=== PATIENT | female | born 1960 | race Caucasian/White ===

== ENCOUNTER 2023-09-05 17:13 | Inpatient (IN) | payer MEDICARE, SELFPAY ==
[2023-09-05 17:15] VITALS: BP 124/72; PULSE 61; RESP 18; TEMP 36.8; O2SAT 96; BMI 27.4
--- NOTE | 2023-09-05 17:22 | XRR_ITS ---
PROCEDURE INFORMATION: Exam: XR Abdomen Exam date and time: 09/05/2023 5:31 PM Age: 62 years old Clinical indication: Abdominal pain; Acute; Prior surgery; Surgery date: 6+ months; Surgery type: Aortic mesh TECHNIQUE: Imaging protocol: Radiologic exam of the abdomen. Views: 2 Views. Upright and supine views. COMPARISON: No relevant prior studies available. FINDINGS: Lungs: Mild chronic appearing interstitial prominence. Heart/Mediastinum: Heart size is within normal limits. A thoracic aortic stent graft is noted. Gastrointestinal tract: Nonspecific bowel-gas pattern without evidence of large or small bowel obstruction. Apparent left lower quadrant ostomy. Moderate retained colonic stool. Intraperitoneal space: Normal. No free air. Bones/joints: No acute osseous abnormalities are seen. XR/XR acute abdomen series [id number] IMPRESSION: No plain film evidence of acute intra-abdominal or pelvic process.
--- NOTE | 2023-09-05 17:42 | ED_ITS ---
Documented by User: Harpreet Rogel DO 09/06/23 05:39 HPI - Abdominal Pain 2 General: Chief Complaint: Abdominal Pain Stated Complaint: abd pain Time Seen by Provider: 09/05/23 17:22 Source: patient Mode of arrival: ambulatory History of Present Illness: 62-year-old female presents emergency ro om with complaints of abdominal pain severe constipation. She states she has not had a normal bowel movement and only treatment nearly 3 weeks she was seen at a hospital in [place]. She has tried multiple laxatives by mouth with no improvement. She has a colostomy. Patient is quadriplegic has a colostomy in the left lower quadrant she has had almost no output in the last couple of weeks. She has been very distended and nauseous. Not had any vomiting. MD elicited complaint: abdominal pain Onset (ago): week(s) Pain Consistency: constant Location: Diffuse Exacerbating factors: nothing Relieving factors: nothing Associated Symptoms: Reports GI cramping; Denies anorexia, belching, bloating, change in bowel habits, change in stool character, chills, coffee ground emesis, constipation, diarrhea, dyspepsia, dysuria, excessive flatus, fever(s), heartburn, hematochezia, hematuria, hematemesis, fecal incontinence, loose stools, melena, nausea, poor appetite, syncope and vomiting Review of Systems 2 Const: Denies: fever(s) or chills Card: Denies: chest pain or syncope Resp: Denies: dyspnea GI: Reports: GI cramping; Denies: abdominal pain, nausea, vomiting, hematemesis, coffee ground emesis, heartburn, diarrhea, constipation, bloating, belching, excessive flatus, fecal incontinence, change in bowel habits, change in stool character, hematochezia or melena : Denies: dysuria, urinary frequency, urinary urgency or hematuria Musc: Denies: neck pain or back pain Skin/Breast: Denies: rash PFSH ED 2 PFSH: Medical History Colostomy in place Quadriplegia Surgical History History of colostomy Social History Smoking and tobacco/nicotine status: never used tobacco/nicotine Alcohol intake: never Substance/Drug Use: never Physical Exam 2 Const: GENERAL APPEARANCE: cooperative and comfortable O RIENTATION/CONSCIOUSNESS: Yes awake, Yes oriented to person, Yes oriented to place and Yes oriented to time HENMT: COMMON NORMALS: normocephalic, atraumatic and hearing grossly normal bilaterally HEAD & SCALP: normocephalic and atraumatic Resp: COMMON NORMALS: normal respiratory effort, No retractions, No use of accessory muscles and clear to auscultation bilaterally AUSCULTATION: clear to auscultation bilaterally Cardio: COMMON NORMALS: regular rate, regular rhythm and No murmurs present (Cardio) RATE: regular rate RHYTHM: regular rhythm GI: COMMON NORMALS: Soft to palpation and No hepatosplenomegaly present I NSPECTION: Yes abdominal distension AUSCULTATION: Yes normoactive bowel sounds PALPATION: Yes Soft to palpation, No Tenderness to palpation present (GI), No Guarding due to palpation present (GI) and Yes No hepatosplenomegaly present : COMMON NORMALS: Yes no CVA tenderness BLADDER/KIDNEY EXAM: Yes no CVA tenderness Back/Pelvis: COMMON NORMALS: no CVA tenderness Extremity: COMMON NORMALS: normal to inspection, capillary refill normal, no clubbing, cyanosis or edema, no calf tenderness and no pedal edema Neuro: SENSORIUM/ORIENTATION: Yes oriented to person, Yes oriented to place and Yes oriented to time Skin: COMMON NORMALS: no rashes or lesions noted GENERAL SKIN EXAM: no rashes or lesions noted Course 2 Vital Signs: Vital signs: Vital Signs Temperature 98.0 F 09/06/23 03:37 Pulse Rate 63 09/06/23 05:11 Respiratory Rate 18 09/06/23 03:37 Blood Pressure 92/54 09/06/23 03:41 Pulse Oximetry 93 09/06/23 03:37 Oxygen Delivery Me thod Nasal Cannula 09/06/23 03:37 Oxygen Flow Rate 2 09/06/23 03:37 MDM - Abdominal Pain Medical Decision Making Care signed out to Dr. Bertrand at change of shift. See final notes for diagnosis and disposition. Lab work reviewed x-ray and abdomen pelvis CT reviewed, patient was given 4 mg morphine and 4 mg Zofran for pain and nausea as well as 1 bottle of mag citrate, 10 mg Duca locks and 12 mg of Relistor for constipation. These did not produce any results. Patient has had to be admitted with bowel irrigation in the past. Dr. Arana was consulted who agreed to place the patient in the hospital and Dr. Guerra general surgery was consulted who agreed to come take a look at the patient. Lab Data 09/05/23 18:10 09/05/23 18:10 Labs/Radiology: Radiology Impressions Chest/Abdomen X-ray 09/05/23 17:22 IMPRESSION: No plain film evidence of acute intra-abdominal or pelvic process. Abdomen/Pelvis CT 09/05/23 17:51 IMPRESSION: 1. No acute intra-abdominal or pelvic process. 2. Indeterminate 5.3 cm segment 8 low-density liver lesion, likely representing a cyst, though indeterminate on this CT scan. Recommend initial evaluation with ultrasound. Multiphase CT or MR should be obtained if lesion remains indeterminate. 3. Other nonemergent findings above. Laboratory Results WBC 7.68 10^3/uL (3.29-11.43) 09/05/23 18:10 RBC 4.01 10^6/uL (3.85-5.65) 09/05/23 18:10 Hgb 11.90 g/dL (11.27-16.99) 09/05/23 18:10 Hct 36.6 % (36-47) 09/05/23 18:10 MCV 91.3 fl (85-98) 09/05/23 18:10 MCH 29.7 pg (27-33) 09/05/23 18:10 MCHC 32.5 g/dL (30-55) 09/05/23 18:10 RDW 14.4 % (12.1-15.1) 09/05/23 18:10 Plt Count 336 10^3/cmm (157-399) 09/05/23 18:10 MPV 9.9 fL (7.4-10.4) 09/05/23 18:10 Neut % (Auto) 49.6 % 09/05/23 18:10 Lymph % (Auto) 40.2 % 09/05/23 18:10 [place] % (Auto) 7.8 % 09/05/23 18:10 Eos % (Auto) 1.6 % 09/05/23 18:10 Baso % (Auto) 0.5 % 09/05/23 18:10 Neut # (Auto) 3.81 10^3/uL (1.8-7.7) 09/05/23 18:10 Lymph # (Auto) 3.1 10^3/uL (0.8-4.8) 09/05/23 18:10 [place] # (Auto) 0.6 10^3/uL (0.2-0.9) 09/05/23 18:10 Eos # (Auto) 0.1 10^3/uL (0.0-0.8) 09/05/23 18:10 Baso # (Auto) 0.0 10^3/uL (0.0-0.1) 09/05/23 18:10 Nucleated RBC % (auto) 0 % 09/05/23 18:10 Nucleated RBCs # 0.0 /100WBC 09/05/23 18:10 Sodium 142 mmol/L (136-145) 09/05/23 18:10 Potassium 4.2 mmol/L (3.5-5.1) 09/05/23 18:10 Chloride 107 mmol/L (98-107) 09/05/23 18:10 Carbon Dioxide 25 mmol/L (22-29) 09/05/23 18:10 Anion Gap 14.2 (5-19) 09/05/23 18:10 BUN 15 mg/dL (8-23) 09/05/23 18:10 Creatinine 0.4 mg/dL (0.5-0.9) L 09/05/23 18:10 GFR Calculation 162.3 mL/min (90-130) H 09/05/23 18:10 Glucose 94 mg/dL (65-115) 09/05/23 18:10 Calculated Osmolality 295 mOsm/kg (285-295) 09/05/23 18:10 Lactic Acid 1.4 mmol/L (0.5-2.2) 09/05/23 18:10 Calcium 9.4 mg/dL (8.5-10.5) 09/05/23 18:10 Total Bilirubin 0.2 mg/dL (0.15-1.2) 09/05/23 18:10 AST 14 U/L (0-32) 09/05/23 18:10 ALT 12 U/L (0-33) 09/05/23 18:10 Alkaline Phosphatase 179 U/L (35-105) H 09/05/23 18:10 Total Protein 7.2 g/dL (6.6-8.7) 09/05/23 18:10 Albumin 3.9 g/dL (3.5-5.2) 09/05/23 18:10 Globulin 3.3 g/dL (1.3-4.6) 09/05/23 18:10 TSH 5.14 uIU/mL (0.27-4.20) H 09/05/23 18:10 Urine Color Yellow (Yellow) 09/05/23 19:57 Urine Appearance Hazy (CLEAR) A 09/05/23 19:57 Urine pH 8 (5-7) H 09/05/23 19:57 Ur Specific [place] 1.005 (1.005-1.030) 09/05/23 19:57 Urine Protein Neg (Negative) 09/05/23 19:57 Urine Glucose (UA) Norm (Normal) 09/05/23 19:57 Urine Ketones Negative (Negative) 09/05/23 19:57 Urine Blood Neg (Negative) 09/05/23 19:57 Urine Nitrate Positive (Negative) H 09/05/23 19:57 Urine Bilirubin Neg (Negative) 09/05/23 19:57 Prot Sulfosalicylic Acd Negative (Negative) 09/05/23 19:57 Urine Urobilinogen Neg mg/dL (Negative) 09/05/23 19:57 Ur Leukocyte Esterase 2+ (Negative) H 09/05/23 19:57 Urine RBC 0-4 /hpf (0-2) H 09/05/23 19:57 Urine WBC 25-40 /hpf (0-5) H 09/05/23 19:57 Ur Squamous Epith Cells 5-10 /hpf (0-5) H 09/05/23 19:57 Amorphous Sediment 1+ /hpf 09/05/23 19:57 Urine Bacteria 2+ /hpf (NONE) H 09/05/23 19:57 Coarse Granular Casts 0-4 /lpf H 09/05/23 19:57 Urine Mucus 2+ /hpf 09/05/23 19:57 Discharge Plan Discharge Patient Disposition: Admitted As Inpatient Admit Provider: Gregorio Paiz Clinical Impression: Constipation Qualifiers: Constipation type: unspecified constipation type Qualified Code(s): K59.00 - Constipation, unspecified Condition: Stable Coding Level of Care Code ED Blanker Operator for Chg Fwd Documented by User: Tr Bertrand DO 09/06/23 01:48 HPI - Abdominal Pain 2 General: Chief Complaint: Abdominal Pain Stated Complaint: abd pain Time Seen by Provider: 09/05/23 17:22 [facility] ED 2 PFSH: Medical History Colostomy in place Quadriplegia Surgical History History of colostomy Social History Smoking and tobacco/nicotine status: never used tobacco/nicotine Alcohol intake: never Substance/Drug Use: never Course 2 Vital Signs: Vital signs: Vital Signs Temperature 98.0 F 09/06/23 03:37 Pulse Rate 63 09/06/23 05:11 Respiratory Rate 18 09/06/23 03:37 Blood Pressure 92/54 09/06/23 03:41 Pulse Oximetry 93 09/06/23 03:37 Oxygen Delivery Me thod Nasal Cannula 09/06/23 03:37 Oxygen Flow Rate 2 09/06/23 03:37 MDM - Abdominal Pain Medical Decision Making Care signed out to Dr. Bertrand at change of shift. See final notes for diagnosis and disposition. Lab work reviewed x-ray and abdomen pelvis CT reviewed, patient was given 4 mg morphine and 4 mg Zofran for pain and nausea as well as 1 bottle of mag citrate, 10 mg Duca locks and 12 mg of Relistor for constipation. These did not produce any results. Patient has had to be admitted with bowel irrigation in the past. Dr. Arana was consulted who agreed to place the patient in the hospital and Dr. Guerra general surgery was consulted who agreed to come take a look at the patient. Lab Data 09/05/23 18:10 09/05/23 18:10 Labs/Radiology: Radiology Impressions Chest/Abdomen X-ray 09/05/23 17:22 IMPRESSION: No plain film evidence of acute intra-abdominal or pelvic process. Abdomen/Pelvis CT 09/05/23 17:51 IMPRESSION: 1. No acute intra-abdominal or pelvic process. 2. Indeterminate 5.3 cm segment 8 low-density liver lesion, likely representing a cyst, though indeterminate on this CT scan. Recommend initial evaluation with ultrasound. Multiphase CT or MR should be obtained if lesion remains indeterminate. 3. Other nonemergent findings above. Laboratory Results WBC 7.68 10^3/uL (3.29-11.43) 09/05/23 18:10 RBC 4.01 10^6/uL (3.85-5.65) 09/05/23 18:10 Hgb 11.90 g/dL (11.27-16.99) 09/05/23 18:10 Hct 36.6 % (36-47) 09/05/23 18:10 MCV 91.3 fl (85-98) 09/05/23 18:10 MCH 29.7 pg (27-33) 09/05/23 18:10 MCHC 32.5 g/dL (30-55) 09/05/23 18:10 RDW 14.4 % (12.1-15.1) 09/05/23 18:10 Plt Count 336 10^3/cmm (157-399) 09/05/23 18:10 MPV 9.9 fL (7.4-10.4) 09/05/23 18:10 Neut % (Auto) 49.6 % 09/05/23 18:10 Lymph % (Auto) 40.2 % 09/05/23 18:10 [place] % (Auto) 7.8 % 09/05/23 18:10 Eos % (Auto) 1.6 % 09/05/23 18:10 Baso % (Auto) 0.5 % 09/05/23 18:10 Neut # (Auto) 3.81 10^3/uL (1.8-7.7) 09/05/23 18:10 Lymph # (Auto) 3.1 10^3/uL (0.8-4.8) 09/05/23 18:10 [place] # (Auto) 0.6 10^3/uL (0.2-0.9) 09/05/23 18:10 Eos # (Auto) 0.1 10^3/uL (0.0-0.8) 09/05/23 18:10 Baso # (Auto) 0.0 10^3/uL (0.0-0.1) 09/05/23 18:10 Nucleated RBC % (auto) 0 % 09/05/23 18:10 Nucleated RBCs # 0.0 /100WBC 09/05/23 18:10 Sodium 142 mmol/L (136-145) 09/05/23 18:10 Potassium 4.2 mmol/L (3.5-5.1) 09/05/23 18:10 Chloride 107 mmol/L (98-107) 09/05/23 18:10 Carbon Dioxide 25 mmol/L (22-29) 09/05/23 18:10 Anion Gap 14.2 (5-19) 09/05/23 18:10 BUN 15 mg/dL (8-23) 09/05/23 18:10 Creatinine 0.4 mg/dL (0.5-0.9) L 09/05/23 18:10 GFR Calculation 162.3 mL/min (90-130) H 09/05/23 18:10 Glucose 94 mg/dL (65-115) 09/05/23 18:10 Calculated Osmolality 295 mOsm/kg (285-295) 09/05/23 18:10 Lactic Acid 1.4 mmol/L (0.5-2.2) 09/05/23 18:10 Calcium 9.4 mg/dL (8.5-10.5) 09/05/23 18:10 Total Bilirubin 0.2 mg/dL (0.15-1.2) 09/05/23 18:10 AST 14 U/L (0-32) 09/05/23 18:10 ALT 12 U/L (0-33) 09/05/23 18:10 Alkaline Phosphatase 179 U/L (35-105) H 09/05/23 18:10 Total Protein 7.2 g/dL (6.6-8.7) 09/05/23 18:10 Albumin 3.9 g/dL (3.5-5.2) 09/05/23 18:10 Globulin 3.3 g/dL (1.3-4.6) 09/05/23 18:10 TSH 5.14 uIU/mL (0.27-4.20) H 09/05/23 18:10 Urine Color Yellow (Yellow) 09/05/23 19:57 Urine Appearance Hazy (CLEAR) A 09/05/23 19:57 Urine pH 8 (5-7) H 09/05/23 19:57 Ur Specific [place] 1.005 (1.005-1.030) 09/05/23 19:57 Urine Protein Neg (Negative) 09/05/23 19:57 Urine Glucose (UA) Norm (Normal) 09/05/23 19:57 Urine Ketones Negative (Negative) 09/05/23 19:57 Urine Blood Neg (Negative) 09/05/23 19:57 Urine Nitrate Positive (Negative) H 09/05/23 19:57 Urine Bilirubin Neg (Negative) 09/05/23 19:57 Prot Sulfosalicylic Acd Negative (Negative) 09/05/23 19:57 Urine Urobilinogen Neg mg/dL (Negative) 09/05/23 19:57 Ur Leukocyte Esterase 2+ (Negative) H 09/05/23 19:57 Urine RBC 0-4 /hpf (0-2) H 09/05/23 19:57 Urine WBC 25-40 /hpf (0-5) H 09/05/23 19:57 Ur Squamous Epith Cells 5-10 /hpf (0-5) H 09/05/23 19:57 Amorphous Sediment 1+ /hpf 09/05/23 19:57 Urine Bacteria 2+ /hpf (NONE) H 09/05/23 19:57 Coarse Granular Casts 0-4 /lpf H 09/05/23 19:57 Urine Mucus 2+ /hpf 09/05/23 19:57 All radiology interpretation(s) finalized by discharge Discharge Plan Discharge Patient Disposition: Admitted As Inpatient Admit Provider: Gregorio Paiz Clinical Impression: Constipation Qualifiers: Constipation type: unspecified constipation type Qualified Code(s): K59.00 - Constipation, unspecified Condition: Stable Coding Level of Care Code ED Blanker Operator for Seng Reynolds
--- NOTE | 2023-09-05 17:51 | CTR_ITS ---
PROCEDURE INFORMATION: Exam: CT Abdomen And Pelvis Without Contrast Exam date and time: 09/05/2023 6:31 PM Age: 62 years old Clinical indication: Abdominal pain; Generalized; Prior surgery; Surgery date: 6+ months; Surgery type: Gb. Colostomy. Csection. Suprapubic cath. Bilat hips. Patient HX: Diffuse abd pain with constipation TECHNIQUE: Imaging protocol: Computed tomography of the abdomen and pelvis without contrast. Radiation optimization: All CT scans at this facility use at least one of these dose optimization techniques: automated exposure control; mA and/or kV adjustment per patient size (includes targeted exams where dose is matched to clinical indication); or iterative reconstruction. COMPARISON: CR (ABDOMEN, ) 09/05/2023 5:31 PM RADIATION DOSE METRICS: Total DLP (mGy-cm): 755.67 FINDINGS: Tubes, catheters and devices: Suprapubic catheter in decompressed urinary bladder. Lungs: Mild [id number]-right basilar atelectasis and/or scarring. Heart: Heart size is within normal limits. There is no pericardial effusion or pericardial thickening. Liver: Indeterminate 5.3 cm segment 8 low-density liver lesion, likely representing a cyst, though indeterminate on this CT scan. The liver is otherwise normal Gallbladder and bile ducts: The gallbladder is surgically absent. There is no ductal dilatation. Pancreas: The pancreas is normal. Spleen: The spleen is normal. Adrenal glands: The adrenal glands are normal. Kidneys and ureters: No renal calcifications are identified. There is no hydronephrosis. Stomach and bowel: [id number] retained colonic stool. Left lower quadrant colostomy. There is no large or small bowel obstruction. There is no evidence of bowel wall thickening. Appendix: A normal appendix is identified. Intraperitoneal space: No inflammatory changes are identified. There is no free fluid or fluid collection seen. There is no pneumoperitoneum. Vasculature: Atherosclerotic calcifications are present. No aneurysm is identified. Lymph nodes: Unremarkable. No enlarged lymph nodes. Urinary bladder: The urinary bladder is decompressed. A suprapubic catheter is present. Reproductive: The uterus is present. Bones/joints: Moderate atrophy of the paraspinal musculature and marked atrophy of the proximal lower extremity and gluteal musculature. Soft tissues: Postoperative changes of the bilateral proximal femurs. Moderate osseous demineralization. Chronic appearing L5 vertebral body compression fracture. No definitive acute fracture seen. CT/CT abdomen pelvis wo con [id number] IMPRESSION: 1. No acute intra-abdominal or pelvic process. 2. Indeterminate 5.3 cm segment 8 low-density liver lesion, likely representing a cyst, though indeterminate on this CT scan. Recommend initial evaluation with ultrasound. Multiphase CT or MR should be obtained if lesion remains indeterminate. 3. Other nonemergent findings above.
[2023-09-05 18:16] LABS: Basophils % 0.5 %; Eosinophils # 0.1 10^3/uL (0.0-0.8); Eosinophils % 1.6 %; Hematocrit 36.6 % (36-47); Lymphocytes # 3.1 10^3/uL (0.8-4.8); Lymphocytes % 40.2 %; Mean Corpuscular HGB Conc 32.5 g/dL (30-55); Mean Corpuscular Hemoglobin 29.7 pg (27-33); Mean Corpuscular Volume 91.3 fl (85-98); Mean Platelet Volume 9.9 fL (7.4-10.4); Monocytes # 0.6 10^3/uL (0.2-0.9); Monocytes % 7.8 %; Neutrophils # 3.81 10^3/uL (1.8-7.7); Neutrophils % 49.6 %; Nucleated Red Blood Cells % 0 %; Platelet Count 336 10^3/cmm (157-399); Red Blood Count 4.01 10^6/uL (3.85-5.65); Red Cell Distribution Width 14.4 % (12.1-15.1); White Blood Count 7.68 10^3/uL (3.29-11.43)
[2023-09-05 18:32] LABS: Alanine Aminotransferase 12 U/L (0-33); Albumin Level 3.9 g/dL (3.5-5.2); Alkaline Phosphatase 179 U/L (35-105); Anion Gap 14.2 (5-19); Aspartate Amino Transferase 14 U/L (0-32); Blood Urea Nitrogen 15 mg/dL (8-23); Calcium 9.4 mg/dL (8.5-10.5); Carbon Dioxide 25 mmol/L (22-29); Chloride 107 mmol/L (98-107); Creatinine Clr Calc Pharmacy 144.2093; Globulin 3.3 g/dL (1.3-4.6); Glomerular Filtration Rate 162.3 mL/min (90-130); Glucose 94 mg/dL (65-115); Osmolality Calculated 295 mOsm/kg (285-295); Potassium 4.2 mmol/L (3.5-5.1); Sodium 142 mmol/L (136-145); Total Bilirubin 0.2 mg/dL (0.15-1.2); Total Protein 7.2 g/dL (6.6-8.7)
[2023-09-05 18:33] LABS: Lactic Sepsis W/Reflex 1.4 mmol/L (0.5-2.2)
[2023-09-05 20:24] LABS: Protein Urine Neg (Negative); Specific Gravity, Urine 1.005 (1.005-1.030); Urine Appearance Hazy (CLEAR); Urine Color Yellow (Yellow); pH Urine 8 (5-7)
[2023-09-05] MEDS: bisacodyl 5 mg Tablet 10 MG PO (20:24)
[2023-09-05] MEDS: magnesium citrate Btl 296 mL PO (20:24)
[2023-09-05 20:25] LABS: Add Urine Culture? Yes; Add Urine Microscopic? YES; Amorphous Sediment Urine 1+ /hpf; Bacteria Urine 2+ /hpf; Bilirubin Urine Neg (Negative); Blood Urine Neg (Negative); Coarse Granular Casts Urine 0-4 /lpf; Glucose Urine UA Norm (Normal); Ketones Urine Negative (Negative); Leukocyte Esterase Urine 2+ (Negative); Mucus Urine 2+ /hpf; Nitrate Urine Positive (Negative); RBC Urine 0-4 /hpf (0-2); Sulfosalicylic Acid Urine Negative (Negative); Urobilinogen Urine Neg (Negative); WBC Urine 25-40 /hpf (0-5)
[2023-09-05 20:26] VITALS: BP 90/65; PULSE 75; RESP 16; O2SAT 97
[2023-09-05] MEDS: ondansetron 2 mg/ML SDV 2 mL 4 MG IVP (20:45)
[2023-09-05 20:46] VITALS: RESP 16; O2SAT 95
[2023-09-05] MEDS: morphine 4 mg/mL SDV 1 mL IVP (20:46)
[2023-09-05] MEDS: methylnaltrexone 12 /0.6 mL INJ 12 MG SUBCUT (21:06)
[2023-09-05] MEDS: ondansetron 2 mg/ML SDV 2 mL 8 MG IVP (21:46)
[2023-09-05 21:50] VITALS: BP 96/71; PULSE 70; RESP 16; O2SAT 91
[2023-09-05 23:02] VITALS: BP 94/56; PULSE 65; O2SAT 94
--- NOTE | 2023-09-05 23:04 | P.HP_ITS ---
Providers/Chief Complaint 2 Admitting Physician: Gregorio Paiz MD Chief Complaint: abd pain History of Present Illness Mily Collins is a 62 year old female with a past medical history of quadriplegia, history of colostomy, with colostomy revision, who presents to [facility] due to abdominal distention, abdominal pain, lack of stooling for the last 2 weeks. Patient tells me that due to her quadriplegia, she has altered bowel function, she has had issues with constipation in the past, requiring inpatient admission, she has had different enema treatments, she has required colonoscopies in the past. She tells me that for the last month she is only had 2 bowel movements and she has not had a bowel movement in over 2 weeks, she continues to have abdominal distention, abdominal pain, no output from her colostomy, she feels nauseous, Review of Systems 2 Const: Denies: fever(s) Card: Denies: chest pain Resp: Denies: dyspnea GI: Reports: abdominal pain and nausea Medications/Allergies Allergies Allergy/AdvReac Type Severity Reaction Status Date / Time amitriptyline Allergy Unknown Unknown Verified 09/05/23 17:26 aspirin Allergy Unknown Unknown Verified 09/05/23 17:26 Sulfa (Sulfonamide Allergy Unknown Unknown Verified 09/05/23 17:26 Antibiotics) adhesive tape Allergy ALGY-Rash Verified 09/05/23 17:26 PFSH Acute 2 PFSH: Medical History (Updated 09/05/23 @ 23:10 by Galen Holley MD) Colostomy in place Quadriplegia Surgical History (Updated 09/05/23 @ 23:07 by Galen Holley MD) History of colostomy Social History (Updated 09/05/23 @ 23:07 by Galen Holley MD) Smoking and tobacco/nicotine status: never used tobacco/nicotine Alcohol intake: never Substance/Drug Use: never Vitals/I&O/Wt Last Vital Signs Temp 98.3 F 09/05/23 17:15 Pulse 65 09/05/23 23:02 Resp 16 09/05/23 21:50 BP 94/56 09/05/23 23:02 Pulse Ox 94 09/05/23 23:02 O2 Del Method Nasal Cannula 09/05/23 23:02 O2 Flow Rate 2 09/05/23 23:02 Weight last 48 hrs Weight 72.575 kg Physical Exam 2 Const: COMMON NORMALS: no acute distress and patient oriented x3 HENMT: COMMON NORMALS: normocephalic HEAD & SCALP: normocephalic Eye: COMMON NORMALS: Equal, round and reactive pupils present Neck/C-Spine: COMMON NORMALS: no JVD Resp: COMMON NORMALS: normal respiratory effort, No retractions, No use of accessory muscles and clear to auscultation bilaterally AUSCULTATION: clear to auscultation bilaterally Cardio: COMMON NORMALS: regular rate, regular rhythm, S1 normal heart sound present and S2 normal heart sound present RATE: regular rate RHYTHM: r egular rhythm HEART SOUNDS: S1 normal heart sound present and S2 normal heart sound present GI: OTHER: Abdomen soft, distended, scattered bowel sounds, no guarding, no rebound, no rigidity, has a left lower quadrant colostomy Extremity: COMMON NORMALS: no pedal edema Neuro: COMMON NORMALS: patient oriented x3 Psych: COMMON NORMALS: mental status grossly normal Data 09/05/23 18:10 09/05/23 18:10 A&P Assessment and plan (1) Constipation by outlet dysfunction: (2) UTI (urinary tract infection): Plan Severe constipation -General surgery consulted by ER -Continue MiraLAX 17 g twice daily -Continue lactulose 20 g twice daily -Check TSH -Serial abdominal exams -Full code -Lovenox for DVT prophylaxis UTI, Rocephin Currently patient does not know medication she takes, family will go home and bring or call us with all her medications Attestations 2 Medical Necessity Statement*: Patient requires hospitalization, inpatient, greater than 2 minutes due to UTI, severe constipation Diagnoses Constipation by outlet dysfunction K59.02 UTI (urinary tract infection) N39.0
--- NOTE | 2023-09-05 23:16 | P.CONIM_ITS ---
Providers/Reason For Consult 2 Consulting Physician/Specialty*: Emergency Department Reason for Consult*: Abdominal pain and Distension Requesting Physician: Dr. Bertrand Attending Physician: Gregorio Paiz MD History of Present Illness History of Present Illness Mily Collins is a 62 year old female with quadriplegia and history of colostomy and colostomy revision for prolapse who presents to ED with 2-3 weeks constipation with increasing abdominal pain, distension, and nausea. She reports history of admission to [facility] 4 weeks ago with the same symptoms where she reports treatment with enemas and pro-motility medications. She reports two or three different pain medications including short and long acting opiates, but says that she rarely takes them unless she's in significant pain as she is now. Her chronic constipation seems to have worsened over the last 6 months, roughly coinciding with a flap coverage procedure for a wound. Review of Systems 2 Const: Reports: change in weight (Increased weight due to retained stool) Eyes: Denies: change in vision ENMT: Reports: dry mouth; Denies: odynophagia Card: Denies: chest pain Resp: Reports: pain on inspiration (deep inspiration increases abdominal pain) GI: Reports: abdominal pain, nausea, constipation (Severe) and bloating; Denies: vomiting or dysphagia : Reports: other (No change in SPT output noted) Musc: Reports: other (Baseline partial quadriplegia) Neuro: Denies: sensory changes or lack of coordination Miguel A/Lymph: Denies: easy bruising or easy bleeding Medications/Allergies Allergies Allergy/AdvReac Type Severity Reaction Status Date / Time amitriptyline Allergy Unknown Unknown Verified 09/05/23 17:26 aspirin Allergy Unknown Unknown Verified 09/05/23 17:26 Sulfa (Sulfonamide Allergy Unknown Unknown Verified 09/05/23 17:26 Antibiotics) adhesive tape Allergy ALGY-Rash Verified 09/05/23 17:26 Patient unsure of home medications, family to bring to hospital for confirmation. PFSH Acute 2 PFSH: Medical History Colostomy in place Quadriplegia Surgical History History of colostomy Social History Smoking and tobacco/nicotine status: never used tobacco/nicotine Alcohol intake: never Substance/Drug Use: never Vitals/I&O/Wt Last Vital Signs Temp 98.3 F 09/05/23 17:15 Pulse 65 09/05/23 23:02 Resp 16 09/05/23 21:50 BP 94/56 09/05/23 23:02 Pulse Ox 94 09/05/23 23:02 O2 Del Method Nasal Cannula 09/05/23 23:02 O2 Flow Rate 2 09/05/23 23:02 Weight last 48 hrs Weight 160 lb Physical Exam 2 Const: COMMON NORMALS: no acute distress, patient oriented x3, alert and well nourished EXAM LIMITATIONS: no altered mental status and no behavioral limitations GENERAL APPEARANCE: cooperative, comfortable, well kempt and well developed HENMT: COMMON NORMALS: normocephalic, atraumatic, hearing grossly normal bilaterally, Normal external nose present and dentition normal HEAD & SCALP: normocephalic and atraumatic NOSE: Normal external nose present Eye: COMMON NORMALS: no scleral icterus GENERAL EYE: appearance normal, both eyes and all related structures ALIGNMENT: Yes alignment normal E YELID: eyelids normal Neck/C-Spine: COMMON NORMALS: full ROM and supple GENERAL: Yes normal visual inspection Resp: COMMON NORMALS: normal respiratory effort, No retractions and No use of accessory muscles EFFORT & INSPECTION: Yes able to speak in complete sentences, Yes symmetric chest movement and No respiratory distress Cardio: COMMON NORMALS: regular rate and regular rhythm RATE: regular rate RHYTHM: regular rhythm PERIPHERAL PULSES: radial pulses present GI: COMMON NORMALS: Soft to palpation INSPECTION: No Abdominal wall edema, Yes abdominal distension, No caput medusae present, No Fluid wave present and Yes GI ostomy present (LLQ Colostomy digitized easily without obstruction, firm stool noted) AUSCULTATION: Yes Hypoactive bowel sounds present PALPATION: Yes Soft to palpation, Yes Tenderness to palpation present (GI) (mild diffuse), No Guarding due to palpation present (GI), No Rigid due to palpation, No Hernia present and No Rebound tenderness present PERCUSSION: no fluid wave RECTAL EXAM: deferred : EXTERNAL FEMALE EXAM: No Hernia present OTHER: SPT present with CYU Extremity: NARRATIVE EXTREMITY EXAM: Partial mobility of arms and hands sufficient to manipulate touchscreen phone despite contractures. No motor control of atrophic lower extremities. Neuro: COMMON NORMALS: patient oriented x3 SENSORIUM/ORIENTATION: Yes alert SPEECH: speech normal MOTOR EXAM: Other motor observations present (Partial mobility of arms and hands, no mobility of lower extremities) Psych: COMMON NORMALS: mental status grossly normal, Normal thought process present, cooperative, normal affect and speech normal APPEARANCE: Yes well kempt ATTITUDE: Yes calm ACTIVITY/MOTOR BEHAVIOR: Yes appropriate eye contact SPEECH: Yes normal speech MOOD & AFFECT: Yes euthymic mood T HOUGHT PROCESS: Normal thought process present THOUGHT CONTENT: Yes Normal thought content present ATTENTION/CONCENTRATION: Yes attention grossly intact INSIGHT: Fair insight present (Psych) JUDGEMENT: Fair judgement present (Psych) Urinary Catheter Management: Suprapubic: Cath Placed During This Visit: no Reason for Continuing Indwelling Catheter: Chronic Indwelling Urinary Catheter on Admission Sepsis: Is patient septic: No Data 09/05/23 18:10 09/05/23 18:10 CT Abd/Pel: I personally reviewed and interpreted this imaging study as follows: My impression: Moderate to severe constipation without evidence of structural obstruction, hernia, volvulus, or stricture. Prior cholecystectomy. No evidence of inflammation within the abdomen. A&P Assessment and plan (1) Constipation: Severe constipation bordering on functional obstruction, likely opiate induced. Agree with admission to and laxative regimen prescribed by medical service. No indication for surgical intervention at this time. Discussed Jackson placement for enema with patient; she declines at this time citing futility of similar efforts at [facility] roughly one month ago. Should this be desired and patient agreeable, please contact me for placement. Qualifiers: Constipation type: unspecified constipation type Qualified Code(s): K 59.00 - Constipation, unspecified Coding Level of Care Code Acute Code for Chg Fwd Diagnoses Constipation K59.00 Constipation type: unspecified constipation type
[2023-09-06] VITALS (15 sets, daily range): BP systolic 71–125; BP diastolic 36–82; PULSE 54–80; RESP 16–18; TEMP 36.4–36.7; O2SAT 93–99; BMI 30.2
[2023-09-06 00:18] LABS: Thyroid Stimulating Hormone 5.14 uIU/mL (0.27-4.20)
[2023-09-06] MEDS: polyethylene glycol 3350 Pkt 17 gm PO ×3 (00:25→18:01)
[2023-09-06] MEDS: pantoprazole 40 mg SDV IVP (00:25)
[2023-09-06] MEDS: enoxaparin 40 mg/0.4 mL Syringe SUBCUT (00:25)
[2023-09-06] MEDS: lactulose oral liq 20 gm/30 mL UDC PO ×2 (00:25→10:56)
[2023-09-06] MEDS: cefTRIAXone 1,000 MG in sodium chloride 0.9% (plus) 50 ML 100 MG IV (00:26)
[2023-09-06] MEDS: sodium chloride 0.9% 1,000 ML 75 ML IV ×2 (00:26→13:57)
[2023-09-06] MEDS: morphine 4 mg/mL SDV 1 mL 2 MG IVP (00:42)
[2023-09-06] MEDS: pregabalin 150 mg Capsule PO ×3 (03:30→20:38)
[2023-09-06] MEDS: trazodone 50 mg Tablet PO ×2 (04:02→18:00)
[2023-09-06 06:04] LABS: Basophils % 0.5 %; Eosinophils # 0.1 10^3/uL (0.0-0.8); Eosinophils % 1.3 %; Hematocrit 33.6 % (36-47); Lymphocytes # 2.6 10^3/uL (0.8-4.8); Lymphocytes % 40.2 %; Mean Corpuscular HGB Conc 32.1 g/dL (30-55); Mean Corpuscular Hemoglobin 29.5 pg (27-33); Mean Corpuscular Volume 91.8 fl (85-98); Mean Platelet Volume 9.7 fL (7.4-10.4); Monocytes # 0.5 10^3/uL (0.2-0.9); Monocytes % 8.2 %; Neutrophils # 3.16 10^3/uL (1.8-7.7); Neutrophils % 49.6 %; Nucleated Red Blood Cells % 0 %; Platelet Count 292 10^3/cmm (157-399); Red Blood Count 3.66 10^6/uL (3.85-5.65); Red Cell Distribution Width 14.4 % (12.1-15.1); White Blood Count 6.35 10^3/uL (3.29-11.43)
[2023-09-06 06:18] LABS: Alanine Aminotransferase 12 U/L (0-33); Albumin Level 3.5 g/dL (3.5-5.2); Alkaline Phosphatase 166 U/L (35-105); Anion Gap 13.5 (5-19); Aspartate Amino Transferase 16 U/L (0-32); Blood Urea Nitrogen 15 mg/dL (8-23); Calcium 8.6 mg/dL (8.5-10.5); Carbon Dioxide 27 mmol/L (22-29); Chloride 105 mmol/L (98-107); Creatinine Clr Calc Pharmacy 151.1043; Globulin 2.9 g/dL (1.3-4.6); Glomerular Filtration Rate 162.3 mL/min (90-130); Glucose 89 mg/dL (65-115); Magnesium 2.5 mg/dL (1.7-2.3); Osmolality Calculated 292 mOsm/kg (285-295); Potassium 4.5 mmol/L (3.5-5.1); Sodium 141 mmol/L (136-145); Total Bilirubin 0.2 mg/dL (0.15-1.2); Total Protein 6.4 g/dL (6.6-8.7)
[2023-09-06] MEDS: acetaminophen 325 mg Tablet 650 MG PO (06:19)
--- NOTE | 2023-09-06 08:08 | PC.PHAR ---
PT STS HER DAUGHTER JUSTICE TAKES CARE OF HER MEDICATIONS- NO ANSWER WHEN I CALLED THE NUMBER AT 8:00 AM LEFT MESSAGE
[2023-09-06] MEDS: sennosides-docusate Tablet 1 TAB PO ×2 (08:52→18:00)
--- NOTE | 2023-09-06 08:53 | ECG_ITS ---
[facility] Test Date: 2023-09-06 Pat Name: Mily Collins Department: Room: 259 Gender: Female [employer] Sales: : 1960 Requested By: Gregorio Paiz Order Number: [id number] Felicia MD: Attila Sepulveda M.D. Measurements Intervals [place] Rate: 59 P: 84 NC: 226 QRS: 70 QRSD: 75 T: 50 QT: 412 QTc: 410 Interpretive Statements SINUS BRADYCARDIA WITH FIRST DEGREE AV BLOCK LOW QRS VOLTAGE IN PRECORDIAL LEADS [QRS DEFLECTION < 1.0 mV IN CHEST LEADS] POSSIBLE RIGHT VENTRICULAR CONDUCTION DELAY [RSR (QR) IN V1/V2] POSSIBLE ANTERIOR MYOCARDIAL INFARCTION , OF INDETERMINATE AGE [30 ms Q WAVE IN V3/V4, OR R < 0.2 mV IN V4] No previous ECG available for comparison Electronically Signed On 09-07-2023 11:11:25 CDT by Attila Sepulveda M.D. [id number]
--- NOTE | 2023-09-06 09:17 | PC.NURSE ---
patients colostomy bag overflowing with stool, with a large amount of stool escaping the bag. stool was a combination of liquid and soft formed stool. ostomy removed, patient cleaned, and new ostomy appliance placed. new band-aid applied to patients suprapubic catheter site. dressing on buttocks changed. patient placed in supine position per request with call light in reach.
--- NOTE | 2023-09-06 09:56 | P.PN_ITS ---
Subjective 2 Subjective: No acute events overnight. Had BM via colostomy, continues to complain of abdominal pain and bloating. Vitals/I&O/Wt Last Vital Signs Temp 97.9 F 09/06/23 07:55 Pulse 59 L 09/06/23 09:07 Resp 16 09/06/23 07:55 BP 92/57 09/06/23 07:55 Pulse Ox 95 09/06/23 09:07 O2 Del Method Nasal Cannula 09/06/23 09:07 O2 Flow Rate 2 09/06/23 09:07 09/05/23 09/06/23 09/06/23 22:59 06:59 14:59 Intake Total 50 / 50 240 / 240 Output Total 150 / 150 Balance -100 / -100 240 / 240 Weight last 48 hrs Weight 176 lb 4.8 oz Weight 176 lb 4.8 oz Weight 160 lb Physical Exam 2 Const: COMMON NORMALS: no acute distress, patient oriented x3 and alert G ENERAL APPEARANCE: cooperative; not in distress HENMT: COMMON NORMALS: normocephalic, atraumatic, external ears normal and Normal external nose present HEAD & SCALP: normocephalic and atraumatic N OSE: Normal external nose present EXTERNAL EAR: Yes external ears normal Eye: GENERAL EYE: appearance normal, both eyes and all related structures Neck/C-Spine: COMMON NORMALS: full ROM and supple GENERAL: Yes normal visual inspection and Yes trachea midline Resp: COMMON NORMALS: normal respiratory effort and No use of accessory muscles EFFORT & INSPECTION: Yes able to speak in complete sentences and Yes symmetric chest movement Cardio: COMMON NORMALS: regular rate and regular rhythm RATE: regular rate RHYTHM: regular rhythm PERIPHERAL PULSES: radial pulses present GI: COMMON NORMALS: Soft to palpation INSPECTION: Yes abdominal distension PALPATION: Yes Soft to palpation, Yes Tenderness to palpation present (GI) (mild diffuse), No Guarding due to palpation present (GI) and No Rigid due to palpation Neuro: COMMON NORMALS: patient oriented x3 SENSORIUM/ORIENTATION: Yes alert Urinary Catheter Management: Suprapubic: Cath Placed During This Visit: no Reason for Continuing Indwelling Catheter: Chronic Indwelling Urinary Catheter on Admission Data 09/06/23 05:37 09/06/23 05:37 A&P Assessment and plan (1) Constipation: Severe constipation bordering on functional obstruction, likely opiate induced. Continue medical management per primary team. No indication for surgical intervention at this time. Discussed need for continued stool softeners and stimulant laxatives on an outpatient basis with the patient to maintain regular bowel movements. Qualifiers: Constipation type: unspecified constipation type Qualified Code(s): K 59.00 - Constipation, unspecified Attestations 2 Medical Necessity Statement*: Requires further hospitalization for management of abdominal pain in setting of severe constipation in patient with chronic opiate use and history of colostomy and revision. Coding Level of Care Code Acute Code for [facility] Fwd Diagnoses Constipation K59.00 Constipation type: unspecified constipation type
[2023-09-06] MEDS: midodrine 5 mg TABLET 10 MG PO ×2 (13:54→20:38)
[2023-09-06] MEDS: ketorolac 30 mg/mL INJ 15 MG IVP ×2 (14:46→20:39)
--- NOTE | 2023-09-06 15:05 | P.PN_ITS ---
Subjective 2 Subjective: Overnight labs and H&P reviewed. Patient has had 1 bowel movement via the colostomy. States that this has been her first bowel movement in the last 3 weeks. Noted to have soft blood pressures, systolic in the 70s. Restarted on home doses of midodrine 10 mg 3 times daily. Medications: Reviewed: Yes Vitals/I&O/Wt Last Vital Signs Temp 97.7 F 09/06/23 11:35 Pulse 57 L 09/06/23 13:33 Resp 16 09/06/23 13:33 BP 71/41 09/06/23 11:35 Pulse Ox 96 09/06/23 13:33 O2 Del Method Nasal Cannula 09/06/23 13:33 O2 Flow Rate 2 09/06/23 13:33 09/06/23 09/06/23 09/06/23 06:59 14:59 22:59 Intake Total 50 / 50 1720 / 1720 Output Total 150 / 150 Balance -100 / -100 1720 / 1720 Weight last 48 hrs Weight 79.968 kg Weight 79.968 kg Weight 72.575 kg Physical Exam 2 Narrative: General: No acute distress, AO x3 HEENT: PERRLA, pupils bilaterally equal and reactive, pallors not present Chest: Normal vesicular breath sounds, no added sounds, equal good air entry bilaterally CVS: S1-S2 regular, no murmurs, no tachycardia, no gallops, no rubs Abdomen: Soft, colostomy present Urinary Catheter Management: Suprapubic: Cath Placed During This Visit: no Reason for Continuing Indwelling Catheter: Chronic Indwelling Urinary Catheter on Admission Data 09/06/23 05:37 09/06/23 05:37 A&P Assessment and plan (1) Constipation by outlet dysfunction: (2) UTI (urinary tract infection): Plan Severe constipation -General surgery consulted by ER -Continue MiraLAX 17 g twice daily -Continue lactulose 20 g twice daily -Check TSH -Serial abdominal exams -Full code -Lovenox for DVT prophylaxis UTI, Rocephin Currently patient does not know medication she takes, family will go home and bring or call us with all her medications Plan for today September 06, 2023 Appreciate surgical recommendations. Continue laxatives. Patient did have 1 bowel movement today. Requesting pain medication. Discussed with her preference to use Toradol today instead of putting her back on opiates to minimize risk of further constipation. Resume home doses of midodrine, Plavix, Xanax, statins, Hip-Fco, oxybutynin. Attestations 2 Medical Necessity Statement*: optimize pain regimen, resume midodrine, continue laxatives Coding Level of Care Code Acute Code for Chg Fwd Diagnoses Constipation by outlet dysfunction K59.02 UTI (urinary tract infection) N39.0
[2023-09-06] MEDS: OLANZapine 10 mg TABLET PO (18:00)
[2023-09-06] MEDS: pantoprazole DR 40 mg Tablet PO (18:00)
[2023-09-06] MEDS: oxybutynin 5 mg Tablet 10 MG PO (18:00)
[2023-09-06] MEDS: clopidogrel 75 mg Tablet PO (18:00)
[2023-09-06] MEDS: atorvastatin 40 mg Tablet PO (18:00)
[2023-09-07] VITALS (10 sets, daily range): BP systolic 80–143; BP diastolic 48–92; PULSE 59–91; RESP 16–20; TEMP 36.2–36.7; O2SAT 95–100
[2023-09-07] MEDS: cefTRIAXone 1,000 MG in sodium chloride 0.9% (plus) 50 ML 100 MG IV (00:08)
[2023-09-07] MEDS: pantoprazole 40 mg SDV IVP ×2 (00:08→23:57)
[2023-09-07] MEDS: lactulose oral liq 20 gm/30 mL UDC PO ×3 (00:08→23:57)
[2023-09-07] MEDS: enoxaparin 40 mg/0.4 mL Syringe SUBCUT ×2 (00:09→23:57)
[2023-09-07] MEDS: sodium chloride 0.9% 1,000 ML 75 ML IV ×2 (02:43→14:57)
[2023-09-07 05:48] LABS: Basophils % 0.6 %; Eosinophils # 0.1 10^3/uL (0.0-0.8); Eosinophils % 2.6 %; Hematocrit 33.9 % (36-47); Lymphocytes # 2.2 10^3/uL (0.8-4.8); Lymphocytes % 43.9 %; Mean Corpuscular HGB Conc 31.9 g/dL (30-55); Mean Corpuscular Hemoglobin 29.8 pg (27-33); Mean Corpuscular Volume 93.6 fl (85-98); Mean Platelet Volume 9.8 fL (7.4-10.4); Monocytes # 0.4 10^3/uL (0.2-0.9); Monocytes % 7.6 %; Neutrophils # 2.23 10^3/uL (1.8-7.7); Neutrophils % 44.9 %; Nucleated Red Blood Cells % 0 %; Platelet Count 271 10^3/cmm (157-399); Red Blood Count 3.62 10^6/uL (3.85-5.65); Red Cell Distribution Width 14.3 % (12.1-15.1); White Blood Count 4.97 10^3/uL (3.29-11.43)
[2023-09-07 06:09] LABS: Alanine Aminotransferase 12 U/L (0-33); Albumin Level 3.3 g/dL (3.5-5.2); Alkaline Phosphatase 160 U/L (35-105); Anion Gap 10.4 (5-19); Aspartate Amino Transferase 14 U/L (0-32); Blood Urea Nitrogen 7 mg/dL (8-23); Calcium 8.4 mg/dL (8.5-10.5); Carbon Dioxide 27 mmol/L (22-29); Chloride 112 mmol/L (98-107); Creatinine Clr Calc Pharmacy 153.2624; Globulin 2.6 g/dL (1.3-4.6); Glomerular Filtration Rate 162.3 mL/min (90-130); Glucose 82 mg/dL (65-115); Osmolality Calculated 297 mOsm/kg (285-295); Potassium 4.4 mmol/L (3.5-5.1); Sodium 145 mmol/L (136-145); Total Bilirubin 0.2 mg/dL (0.15-1.2); Total Protein 5.9 g/dL (6.6-8.7)
[2023-09-07] MEDS: albuterol 2.5 mg/3 mL Neb INHALATION (08:51)
[2023-09-07] MEDS: pantoprazole DR 40 mg Tablet PO ×2 (09:04→18:08)
[2023-09-07] MEDS: polyethylene glycol 3350 Pkt 17 gm PO ×2 (09:04→18:07)
[2023-09-07] MEDS: sennosides-docusate Tablet 1 TAB PO ×2 (09:04→18:08)
[2023-09-07] MEDS: midodrine 5 mg TABLET 10 MG PO ×3 (09:04→20:21)
[2023-09-07] MEDS: pregabalin 150 mg Capsule PO ×3 (09:05→20:22)
[2023-09-07] MEDS: oxybutynin 5 mg Tablet 10 MG PO ×2 (09:05→18:08)
--- NOTE | 2023-09-07 10:21 | P.PN_ITS ---
Subjective 2 Subjective: No acute events overnight. Abdominal pain slightly improved but persistent. Multiple liquid stool BM in last 24h. Appears to be tolerating PO well without nausea. Patient is frustrated that she is not passing solid stool. Vitals/I&O/Wt Last Vital Signs Temp 98.0 F 09/07/23 08:42 Pulse 69 09/07/23 08:55 Resp 16 09/07/23 08:55 BP 84/56 09/07/23 08:42 Pulse Ox 95 09/07/23 08:55 O2 Del Method Nasal Cannula 09/07/23 08:55 O2 Flow Rate 2 09/07/23 08:55 09/06/23 09/07/23 09/07/23 22:59 06:59 14:59 Intake Total 720 / 2440 1487.5 / 3927.5 480 / 480 Output Total 650 / 650 200 / 850 Balance 70 / 1790 1287.5 / 3077.5 480 / 480 Weight last 48 hrs Weight 181 lb 6.4 oz Weight 176 lb 4.8 oz Weight 176 lb 4.8 oz Weight 160 lb Physical Exam 2 Const: COMMON NORMALS: no acute distress, patient oriented x3 and alert G ENERAL APPEARANCE: cooperative and comfortable HENMT: COMMON NORMALS: normocephalic, atraumatic, hearing grossly normal bilaterally, external ears normal and Normal external nose present HEAD & SCALP: normocephalic and atraumatic NOSE: Normal external nose present E XTERNAL EAR: Yes external ears normal Eye: COMMON NORMALS: EOMs intact bilaterally and no scleral icterus GENERAL EYE: appearance normal, both eyes and all related structures ALIGNMENT: Yes alignment normal Neck/C-Spine: GENERAL: Yes normal visual inspection and Yes trachea midline Resp: COMMON NORMALS: normal respiratory effort, No retractions and No use of accessory muscles EFFORT & INSPECTION: Yes able to speak in complete sentences and Yes symmetric chest movement Cardio: COMMON NORMALS: regular rate and regular rhythm RATE: regular rate RHYTHM: regular rhythm PERIPHERAL PULSES: radial pulses present GI: COMMON NORMALS: Soft to palpation INSPECTION: Yes abdominal distension (mild) and Yes GI ostomy present (with liquid brown stool) PALPATION: Yes Soft to palpation, Yes Tenderness to palpation present (GI) (mild diffuse), No Guarding due to palpation present (GI) and No Rigid due to palpation Neuro: COMMON NORMALS: patient oriented x3 SENSORIUM/ORIENTATION: Yes alert Psych: COMMON NORMALS: mental status grossly normal, Normal thought process present, cooperative, normal affect and speech normal ATTITUDE: Yes calm A CTIVITY/MOTOR BEHAVIOR: Yes appropriate eye contact SPEECH: Yes normal speech THOUGHT PROCESS: Normal thought process present Urinary Catheter Management: Suprapubic: Cath Placed During This Visit: no Reason for Continuing Indwelling Catheter: Chronic Indwelling Urinary Catheter on Admission Data 09/07/23 05:11 09/07/23 05:11 Micro: Microbiology 09/05/23 19:57 Urine Culture - Preliminary Urine,Clean Catch Gram Negative Rods A&P Assessment and plan (1) Constipation: Laxatives successful in promoting bowel movements, although patient seems fixated on passing solid stool. -Continue medical management -No indication for surgical intervention at this time -Agree with minimizing opiate use -Discussed need for continued stool softeners and stimulant laxatives on an outpatient basis with the patient to maintain regular bowel movements, which may remain liquid. This expectation will likely need to be reinforced with patient in further discussions. -Stable for discharge from a Surgical perspective Qualifiers: Constipation type: unspecified constipation type Qualified Code(s): K 59.00 - Constipation, unspecified Attestations 2 Medical Necessity Statement*: Optimize pain regimen, continue laxatives, establish plan of care and expectations for home bowel regimen Coding Level of Care Code Acute Code for g Fwd Diagnoses Constipation K59.00 Constipation type: unspecified constipation type
[2023-09-07] MEDS: morphine 4 mg/mL SDV 1 mL 2 MG IVP ×2 (11:43→18:08)
--- NOTE | 2023-09-07 14:45 | P.PN_ITS ---
Subjective 2 Subjective: No acute events. States that she still has intermittent abdominal pain. She has had multiple liquid bowel movements, however not happy about still having liquid bowel movements. Medications: Reviewed: Yes Vitals/I&O/Wt Last Vital Signs Temp 97.1 F L 09/07/23 12:17 Pulse 78 09/07/23 12:17 Resp 20 H 09/07/23 12:17 BP 136/79 09/07/23 12:17 Pulse Ox 100 09/07/23 12:17 O2 Del Method Nasal Cannula 09/07/23 12:17 O2 Flow Rate 2 09/07/23 08:55 09/06/23 09/07/23 09/07/23 22:59 06:59 14:59 Intake Total 720 / 2440 1487.5 / 3927.5 720 / 720 Output Total 650 / 650 200 / 850 Balance 70 / 1790 1287.5 / 3077.5 720 / 720 Weight last 48 hrs Weight 82.282 kg Weight 79.968 kg Weight 79.968 kg Weight 72.575 kg Physical Exam 2 Narrative: General: No acute distress, AO x3 HEENT: PERRLA, pupils bilaterally equal and reactive, pallors not present Chest: Normal vesicular breath sounds, no added sounds, equal good air entry bilaterally CVS: S1-S2 regular, no murmurs, no tachycardia, no gallops, no rubs Abdomen: Soft, colostomy present Urinary Catheter Management: Suprapubic: Cath Placed During This Visit: no Reason for Continuing Indwelling Catheter: Chronic Indwelling Urinary Catheter on Admission Data 09/07/23 05:11 09/07/23 05:11 Micro: Microbiology 09/05/23 19:57 Urine Culture - Preliminary Urine,Clean Catch Gram Negative Rods A&P Assessment and plan (1) Constipation by outlet dysfunction: (2) UTI (urinary tract infection): Plan Severe constipation -General surgery consulted by ER -Continue MiraLAX 17 g twice daily -Continue lactulose 20 g twice daily -Check TSH -Serial abdominal exams -Full code -Lovenox for DVT prophylaxis UTI, Rocephin Currently patient does not know medication she takes, family will go home and bring or call us with all her medications Plan for today September 06, 2023 Appreciate surgical recommendations. Continue laxatives. Patient did have 1 bowel movement today. Requesting pain medication. Discussed with her preference to use Toradol today instead of putting her back on opiates to minimize risk of further constipation. Resume home doses of midodrine, Plavix, Xanax, statins, Hip-Fco, oxybutynin. Plan for today September 07, 2023. Patient is having several bowel movements now. Discussed with her that liquid bowel movements are likely to continue given that we are pushing laxatives. As long as she has bowel movement and passing flatus, unlikely to be having bowel obstruction. Discussed with her that she would need to continue stool softeners and laxatives as an outpatient to maintain regular bowel movements. Overall she is stable for discharge today. Diet has been advanced to GI soft to assess for tolerability. Patient states she will likely not be able to return home today as her caregivers which is primarily her daughter is at work today. She will only be able to pick her up tomorrow and attend to her. For this reason we will defer discharge until tomorrow. Attestations 2 Medical Necessity Statement*: Clinically improving, advance diet, anticipate discharge in the upcoming 24 hours. Coding Level of Care Code Acute Code for Chg Fwd Diagnoses Constipation by outlet dysfunction K59.02 UTI (urinary tract infection) N39.0
[2023-09-07] MEDS: ketorolac 30 mg/mL INJ 15 MG IVP ×2 (14:55→23:57)
[2023-09-07] MEDS: OLANZapine 10 mg TABLET PO (18:08)
[2023-09-07] MEDS: trazodone 50 mg Tablet PO ×2 (18:08→21:25)
[2023-09-07] MEDS: atorvastatin 40 mg Tablet PO (18:08)
[2023-09-07] MEDS: clopidogrel 75 mg Tablet PO (18:08)
[2023-09-08] VITALS (8 sets, daily range): BP systolic 76–156; BP diastolic 40–96; PULSE 63–84; RESP 16–17; TEMP 36.7–36.9; O2SAT 94–99
[2023-09-08] MEDS: sodium chloride 0.9% 1,000 ML 75 ML IV (04:14)
[2023-09-08 05:42] LABS: Basophils % 0.5 %; Eosinophils # 0.2 10^3/uL (0.0-0.8); Eosinophils % 2.9 %; Hematocrit 32.3 % (36-47); Lymphocytes # 2.2 10^3/uL (0.8-4.8); Lymphocytes % 39.1 %; Mean Corpuscular HGB Conc 31.3 g/dL (30-55); Mean Corpuscular Hemoglobin 29.9 pg (27-33); Mean Corpuscular Volume 95.6 fl (85-98); Mean Platelet Volume 10.1 fL (7.4-10.4); Monocytes # 0.5 10^3/uL (0.2-0.9); Monocytes % 8.9 %; Neutrophils # 2.66 10^3/uL (1.8-7.7); Neutrophils % 48.4 %; Nucleated Red Blood Cells % 0 %; Platelet Count 266 10^3/cmm (157-399); Red Blood Count 3.38 10^6/uL (3.85-5.65); Red Cell Distribution Width 14.5 % (12.1-15.1)
[2023-09-08 05:56] LABS: Alanine Aminotransferase 11 U/L (0-33); Albumin Level 3.1 g/dL (3.5-5.2); Alkaline Phosphatase 147 U/L (35-105); Anion Gap 10.1 (5-19); Aspartate Amino Transferase 14 U/L (0-32); Blood Urea Nitrogen 6 mg/dL (8-23); Calcium 8.3 mg/dL (8.5-10.5); Carbon Dioxide 24 mmol/L (22-29); Chloride 115 mmol/L (98-107); Creatinine Clr Calc Pharmacy 211.6817; Globulin 2.5 g/dL (1.3-4.6); Glomerular Filtration Rate 226.2 mL/min (90-130); Glucose 78 mg/dL (65-115); Osmolality Calculated 296 mOsm/kg (285-295); Potassium 4.1 mmol/L (3.5-5.1); Sodium 145 mmol/L (136-145); Total Bilirubin 0.2 mg/dL (0.15-1.2); Total Protein 5.6 g/dL (6.6-8.7)
[2023-09-08] MEDS: pregabalin 150 mg Capsule PO ×2 (08:30→15:02)
[2023-09-08] MEDS: pantoprazole DR 40 mg Tablet PO ×2 (08:30→17:32)
[2023-09-08] MEDS: sennosides-docusate Tablet 1 TAB PO ×2 (08:30→17:32)
[2023-09-08] MEDS: midodrine 5 mg TABLET 10 MG PO ×2 (08:30→15:02)
[2023-09-08] MEDS: oxybutynin 5 mg Tablet 10 MG PO ×2 (08:30→17:32)
[2023-09-08] MEDS: polyethylene glycol 3350 Pkt 17 gm PO ×2 (08:31→17:32)
--- NOTE | 2023-09-08 10:13 | PC.CHAP ---
Pastoral Care Encounter/Spiritual Assessment Type of Contact [] Declined relays draftsperson visit [] Patient/Family/Request visit [] Outpatient visit [] Follow-up visit [] Physician referral [] Code/Alert [X] Routine visit [] Staff referral [] Actively dying [] Patient sleeping [] Family support [] [] Out of room [] Palliative care [] [] Receiving care in room [] Pre-surgical visit [] Trauma [] Long length of stay [] ICU visit [] Other: Relational/Emotional Strength [] Patient feels connected with others/family/visitors/staff [] Distress [] Loneliness/isolation [] Abandonment Spirituality of Patient [X] Person of Carmelita [] Attends Gnosticist of their Carmelita [X] Believes in Prayer [] Reads Bible or Holiness materials [] There are Spiritual issues to be addressed Large Animal Veterinarian Interventions [X] Prayer [X] Active listening [] Non-anxious presence [] Spiritual/emotional support [] Crisis/trauma care [] Spiritual counseling [] Bereavement support [] Provided bereavement packet [X] Provided Bible/devotional materials [] Provided toy/stuffed animal, coloring book to patient or family member [] Provided Communion [] Anointing/[place] [] Salvation [X Completed spiritual assessment [] Other: Impact on Illness or Injury [] Angry [] Fearful [] Anxious [] Often cries [] Exhaustion [] Unable to work [] Unable to attend christian [] Unable to walk/stand [] Unable to read [] Unable to drive [] Unable to eat/drink [] Unable to sleep [] Unable to be with family [] Patient intubated [] Other: Summary Time spent with patient 5 MIN
--- NOTE | 2023-09-08 10:14 | PC.SOCIAL ---
IMM Update pg 2 of IMM updated and reviewed w/ patient. Copy provided and copy dated, initialed and placed in chart.
[2023-09-08] MEDS: morphine 4 mg/mL SDV 1 mL 2 MG IVP ×2 (10:53→15:05)
[2023-09-08] MEDS: lactulose oral liq 20 gm/30 mL UDC PO (10:54)
[2023-09-08] MEDS: ketorolac 30 mg/mL INJ 15 MG IVP (12:58)
--- NOTE | 2023-09-08 13:41 | P.DS_ITS ---
Discharge Providers Date of Admission: 09/05/23 22:30 Date of Discharge: September 08, 2023 Attending Provider at Admission: Gregorio Paiz MD Attending Provider at Discharge: Nixon Jennings MD Consults: General surgery Diagnoses at Discharge Discharge Diagnosis (1) Constipation by outlet dysfunction: Status: Acute (2) UTI (urinary tract infection): Status: Acute Reason for Visit Reason for Visit: abd pain Hospital Course Hospital Course 62yo F with Hx of colostomy, with colostomy revision, who presented to [facility] due to abdominal distention, abdominal pain, lack of stooling for the last 2 weeks. Pt was admmitted for severe constipation. was initially started on Miralax BID, lactulose 20g BID. General surgery was consulted for possible SBO. had done well on laxatives which helped promote BM's. per gen surgery pt was fixated on passing solid stools. no surgical intervention was needed. of note, was found to have UTI treated with rocephin. pt fairly uncertian of [facility] and we where unable to confirm during hospitalization. after 2 days of laxatives pt had bowel movements. held at home opioids to minimize risk of further constipation. resumed home midodrine, p lavix, xanax, statins, hip-светлана, oxybutatnin. at time of discharge had been having good solid BM's. no distension. advanced diet w/o abnormalities. primary caregiver is daugther who will pick her up tonight. stable for discharge Physical Exam Narrative: General: No acute distress, AO x3 HEENT: PERRLA, pupils bilaterally equal and reactive, pallors not present Chest: Normal vesicular breath sounds, no added sounds, equal good air entry bilaterally CVS: S1-S2 regular, no murmurs, no tachycardia, no gallops, no rubs Abdomen: Soft, colostomy present Urinary Catheter Management: Suprapubic: Cath Placed During This Visit: no Reason for Continuing Indwelling Catheter: Chronic Indwelling Urinary Catheter on Admission Discharge Data Studies Completed and Pending Completed Studies During Hospitalization Category Date Time Status CT abdomen pelvis wo con [id number] Stat Cat Scan 09/05/23 17:51 Completed XR acute abdomen series [id number] Stat Exams 09/05/23 17:22 Completed Radiology Impressions Chest/Abdomen X-ray 09/05/23 17:22 IMPRESSION: No plain film evidence of acute intra-abdominal or pelvic process. Abdomen/Pelvis CT 09/05/23 17:51 IMPRESSION: 1. No acute intra-abdominal or pelvic process. 2. Indeterminate 5.3 cm segment 8 low-density liver lesion, likely representing a cyst, though indeterminate on this CT scan. Recommend initial evaluation with ultrasound. Multiphase CT or MR should be obtained if lesion remains indeterminate. 3. Other nonemergent findings above. Laboratory Results WBC 5.50 10^3/uL (3.29-11.43) 09/08/23 04:02 RBC 3.38 10^6/uL (3.85-5.65) L 09/08/23 04:02 Hgb 10.10 g/dL (11.27-16.99) L 09/08/23 04:02 Hct 32.3 % (36-47) L 09/08/23 04:02 MCV 95.6 fl (85-98) 09/08/23 04:02 MCH 29.9 pg (27-33) 09/08/23 04:02 MCHC 31.3 g/dL (30-55) 09/08/23 04:02 RDW 14.5 % (12.1-15.1) 09/08/23 04:02 Plt Count 266 10^3/cmm (157-399) 09/08/23 04:02 MPV 10.1 fL (7.4-10.4) 09/08/23 04:02 Neut % (Auto) 48.4 % 09/08/23 04:02 Lymph % (Auto) 39.1 % 09/08/23 04:02 [place] % (Auto) 8.9 % 09/08/23 04:02 Eos % (Auto) 2.9 % 09/08/23 04:02 Baso % (Auto) 0.5 % 09/08/23 04:02 Neut # (Auto) 2.66 10^3/uL (1.8-7.7) 09/08/23 04:02 Lymph # (Auto) 2.2 10^3/uL (0.8-4.8) 09/08/23 04:02 [place] # (Auto) 0.5 10^3/uL (0.2-0.9) 09/08/23 04:02 Eos # (Auto) 0.2 10^3/uL (0.0-0.8) 09/08/23 04:02 Baso # (Auto) 0.0 10^3/uL (0.0-0.1) 09/08/23 04:02 Nucleated RBC % (auto) 0 % 09/08/23 04:02 Nucleated RBCs # 0.0 /100WBC 09/08/23 04:02 Sodium 145 mmol/L (136-145) 09/08/23 04:02 Potassium 4.1 mmol/L (3.5-5.1) 09/08/23 04:02 Chloride 115 mmol/L (98-107) H 09/08/23 04:02 Carbon Dioxide 24 mmol/L (22-29) 09/08/23 04:02 Anion Gap 10.1 (5-19) 09/08/23 04:02 BUN 6 mg/dL (8-23) L 09/08/23 04:02 Creatinine 0.3 mg/dL (0.5-0.9) L 09/08/23 04:02 GFR Calculation 226.2 mL/min (90-130) H 09/08/23 04:02 Glucose 78 mg/dL (65-115) 09/08/23 04:02 Calculated Osmolality 296 mOsm/kg (285-295) H 09/08/23 04:02 Lactic Acid 1.4 mmol/L (0.5-2.2) 09/05/23 18:10 Calcium 8.3 mg/dL (8.5-10.5) L 09/08/23 04:02 Phosphorus 4.0 mg/dL (2.5-4.5) 09/06/23 05:37 Magnesium 2.5 mg/dL (1.7-2.3) H 09/06/23 05:37 Total Bilirubin 0.2 mg/dL (0.15-1.2) 09/08/23 04:02 AST 14 U/L (0-32) 09/08/23 04:02 ALT 11 U/L (0-33) 09/08/23 04:02 Alkaline Phosphatase 147 U/L (35-105) H 09/08/23 04:02 Total Protein 5.6 g/dL (6.6-8.7) L 09/08/23 04:02 Albumin 3.1 g/dL (3.5-5.2) L 09/08/23 04:02 Globulin 2.5 g/dL (1.3-4.6) 09/08/23 04:02 TSH 5.14 uIU/mL (0.27-4.20) H 09/05/23 18:10 Urine Color Yellow (Yellow) 09/05/23 19:57 Urine Appearance Hazy (CLEAR) A 09/05/23 19:57 Urine pH 8 (5-7) H 09/05/23 19:57 Ur Specific [place] 1.005 (1.005-1.030) 09/05/23 19:57 Urine Protein Neg (Negative) 09/05/23 19:57 Urine Glucose (UA) Norm (Normal) 09/05/23 19:57 Urine Ketones Negative (Negative) 09/05/23 19:57 Urine Blood Neg (Negative) 09/05/23 19:57 Urine Nitrate Positive (Negative) H 09/05/23 19:57 Urine Bilirubin Neg (Negative) 09/05/23 19:57 Prot Sulfosalicylic Acd Negative (Negative) 09/05/23 19:57 Urine Urobilinogen Neg mg/dL (Negative) 09/05/23 19:57 Ur Leukocyte Esterase 2+ (Negative) H 09/05/23 19:57 Urine RBC 0-4 /hpf (0-2) H 09/05/23 19:57 Urine WBC 25-40 /hpf (0-5) H 09/05/23 19:57 Ur Squamous Epith Cells 5-10 /hpf (0-5) H 09/05/23 19:57 Amorphous Sediment 1+ /hpf 09/05/23 19:57 Urine Bacteria 2+ /hpf (NONE) H 09/05/23 19:57 Coarse Granular Casts 0-4 /lpf H 09/05/23 19:57 Urine Mucus 2+ /hpf 09/05/23 19:57 Vitals Last Vital Signs Temp 98.1 F 09/08/23 08:00 Pulse 70 09/08/23 12:00 Resp 16 09/08/23 12:00 BP 153/96 09/08/23 12:00 Pulse Ox 96 09/08/23 12:00 O2 Del Method Room Air 09/08/23 12:00 O2 Flow Rate 2 09/08/23 08:42 Discharge Plan Discharge Patient Disposition: Home Condition: Stable Prescriptions: New lactulose 20 gram/30 mL Solution 20 g PO Q12H 30 Days Qty: 1800 0RF Rx Instructions: if develops diarrhea only take once daily Stool Softener-Laxative 8.6-50 mg Tablet 1 tab PO BID Qty: 60 0RF Miralax 17 gram/dose powder 34 g PO DAILY Qty: 850 0RF Rx Instructions: if diarrhea only take 1 scoop (17g) daily Continued acetaminophen 500 mg Tablet 500 mg PO Q6H PRN (Reason: Pain (Scale Score 1-3)) atorvastatin 40 mg tablet 40 mg PO QPM albuterol sulfate 2.5 mg /3 mL (0.083 %) Solution For Nebulization 2.5 mg inhalation Q6H PRN (Reason: Shortness Of Breath Or Wheezing) trazodone 50 mg Tablet 50 mg PO QPM famotidine 40 mg Tablet 40 mg PO DAILY alendronate 70 mg tablet 70 mg PO Q7D Rx Instructions: ON FRIDAY olanzapine 10 mg Tablet 10 mg PO QPM clopidogrel 75 mg tablet 75 mg PO QPM methenamine hippurate [Hiprex] 1 gram Tablet 1 g PO BID alprazolam 0.25 mg Tablet 0.25 mg PO TID PRN (Reason: Anxiety) promethazine 25 mg Tablet 25 mg PO Q6H PRN (Reason: Nausea) ondansetron 4 mg Tablet,Disintegrating 4 mg PO Q8H PRN (Reason: Nausea And Vomiting) midodrine 10 mg Tablet 10 mg PO TID Rx Instructions: do not give last dose of day after 6PM or within 4 hrs of bedtime pregabalin 150 mg Capsule 150 mg PO TID budesonide-formoterol 80-4.5 mcg/actuation Hfa Aerosol Inhaler 2 puff inhalation DAILY PRN (Reason: Shortness Of Breath Or Wheezing) diclofenac sodium 1 % Gel 2 g TOPICAL QID PRN (Reason: Pain) Rx Instructions: apply to single elbow, wrist or hand; for hand includes palm/fingers/back of hand oxycodone 10 mg Tablet 10 mg PO Q4H PRN (Reason: Pain (Scale Score 4-6)) vortioxetine 20 mg Tablet 20 mg PO DAILY oxybutynin chloride 10 mg tablet extended release 24hr 10 mg PO BID [place]na with Docusate Sodium 8.6-50 mg Tablet 1 tab-cap PO DAILY PRN (Reason: Constipation) pantoprazole 40 mg tablet,delayed release (DR/EC) 40 mg PO BID Discontinued lactulose 20 gram Packet 20 g PO DAILY polyethylene glycol 3350 [Miralax] 17 gram/dose Powder 4 g PO DAILY Discharge Orders: Discharge Order (Routine); Ordered 09/08/23 Ordered By: Nixon Jennings Referrals: Eden Wilburn [Referring] - 09/12/23 1:30 pm (APPOINTMENT IS AT [facility] [phone] EDEN WILBURN) Discharge Diet: Cardiac Discharge Activity: Resume usual activity Patient Instructions: Opioid Safety Discharge Attestations Time Spent in Discharge Care*: less than 30 min Quality Metrics Clinical Quality Measures [ No reported AMI, CVA or VTE this stay] Coding Level of Care Code 77246 Diagnoses Constipation by outlet dysfunction K59.02 UTI (urinary tract infection) N39.0
[2023-09-08] MEDS: OLANZapine 10 mg TABLET PO (17:32)
[2023-09-08] MEDS: atorvastatin 40 mg Tablet PO (17:32)
[2023-09-08] MEDS: clopidogrel 75 mg Tablet PO (17:32)
== END 2023-09-08 19:40 | disposition home health service (06) | DRG 391 ==
LOC: ER 22:30 → MEDSURG 22:47
PROVIDERS: Family Medicine; Student in an Organized Health Care Education/Training Program; Admitting Provider Surgery; Emergency Provider Family Medicine; Visit Provider Family Medicine
DX: K59.02 Outlet dysfunction constipation (principal); G82.50 Quadriplegia, unspecified; N39.0 Urinary tract infection, site not specified; K59.03 Drug induced constipation; T40.605A Adverse effect of unspecified narcotics, initial encounter; Z93.3 Colostomy status; Z93.6 Other artificial openings of urinary tract status; Z79.02 Long term (current) use of antithrombotics/antiplatelets
CPT/HCPCS: 36415; 74022; 74176; 80053; 81001; 83605; 83735; 84100; 84443; 85025; 87077; 87086; 87186; 93005; 94640; 94664; 96372; 96374; 96375; 96376; 99285; C9113; J0696; J1650; J1885; J2212; J2270; J2405; J7030; J7613